=== PATIENT | male | born 1945 | race Caucasian/White ===

== ENCOUNTER 2018-05-04 11:09 | Inpatient (IN) | payer OTHER, BC ==
[2018-05-04 11:52] LABS: WHITE BLOOD COUNT 2.8 10^3/ul (4.8-10.8)
[2018-05-04 11:52] LABS: ABNORMAL IP MESSAGE 1; HEMATOCRIT 37.6 % (42.0-52.0); MEAN CORPUSCULAR HEMOGLOBIN 30.9 pg (29.0-33.0); MEAN CORPUSCULAR HGB CONC 31.9 g/dl (32.0-37.0); MEAN CORPUSCULAR VOLUME 96.9 fl (82.0-101.0); PLATELET COUNT 78 10^3/UL (140-415); POSITIVE DIFF @See below; RED BLOOD COUNT 3.88 10^6/ul (4.70-6.10); RED CELL DISTRIBUTION WIDTH 14.3 % (11.5-14.5)
[2018-05-04 11:54] LABS: ADD MAN DIFF? YES
[2018-05-04] MEDS: SOD CHLORIDE 0.9% 1,000 ML IV ×2 (11:54→14:00)
[2018-05-04 12:13] LABS: INR 1.09; PARTIAL THROMBOPLASTIN TIME 30.9 Sec (23.0-35.0); PROTIME 14.3 Sec (11.9-14.9); PT RATIO 1.1
[2018-05-04 12:31] LABS: ANION GAP 8 (5-13); BLOOD UREA NITROGEN 31 mg/dl (7-20); CALCIUM 8.8 mg/dl (8.4-10.2); CARBON DIOXIDE 26 mmol/L (21-31); CHLORIDE 110 mmol/L (97-110); CREATININE 0.87 mg/dl (0.61-1.24); GLUCOSE 93 mg/dl (70-220); POTASSIUM 4.1 mmol/L (3.5-5.1); SODIUM 144 mmol/L (135-144)
[2018-05-04 12:35] LABS: VALPROATE 54 ug/ml (50-100)
[2018-05-04 12:42] LABS: TROPONIN-I < 0.012 ng/ml (0.000-0.120)
[2018-05-04 12:51] LABS: BAND NEUTROPHILS % (M) 1 % (0-4); BASOPHILS % (M) 1 % (0-2); EOSINOPHILS % (M) 5 % (0-7); LYMPHOCYTES #M 0.7 10^3/ul (0.8-2.9); LYMPHOCYTES % (M) 25 % (15-51); MONOCYTE #M 0.1 10^3/ul (0.3-0.9); MONOCYTES % (M) 6 % (0-11); OVALOCYTES 1+ (0-0); PLATELET ESTIMATE DECREASED; SEG NEUT #M 1.7 10^3/ul (1.6-7.5); SEGMENTED NEUTROPHILS (M) % 62 % (39-77); SMUDGE%M 31 % (0-0)
[2018-05-04] MEDS ORDERED: ACETAMINOPHEN 325 MG TAB PO ×2 (13:00→14:00)
[2018-05-04] MEDS ORDERED: ONDANSETRON 4 MG INJ IV ×2 (13:00→14:00)
[2018-05-04] MEDS ORDERED: NACL 0.9% 3 ML SYG IV (14:00)
[2018-05-04 14:22] LABS: HEMOGLOBIN A1C 5.3 % (0-5.9)
[2018-05-04 14:37] LABS: FREE T4 (FREE THYROXINE) 0.84 ng/dl (0.78-2.44)
[2018-05-04 15:05] LABS: DIGOXIN < 0.4 ng/ml (1.0-2.0)
[2018-05-04 15:55] LABS: ALANINE AMINOTRANSFERASE 35 IU/L (13-69); ALBUMIN 2.8 g/dl (3.3-4.9); ALBUMIN/GLOBULIN RATIO 0.87; ALKALINE PHOSPHATASE 42 IU/L (42-121); ANION GAP 7 (5-13); ASPARTATE AMINO TRANSFERASE 36 IU/L (15-46); BILIRUBIN,INDIRECT 0.5 mg/dl (0-1.1); BILIRUBIN,TOTAL 0.5 mg/dl (0.2-1.3); BLOOD UREA NITROGEN 29 mg/dl (7-20); CALCIUM 8.7 mg/dl (8.4-10.2); CARBON DIOXIDE 27 mmol/L (21-31); CHLORIDE 108 mmol/L (97-110); CREATINE KINASE 105 IU/L (23-200); CREATININE 0.85 mg/dl (0.61-1.24); GLUCOSE 83 mg/dl (70-220); MAGNESIUM 1.9 mg/dl (1.7-2.5); POTASSIUM 4.2 mmol/L (3.5-5.1); SODIUM 142 mmol/L (135-144)
[2018-05-04 16:02] LABS: C-REACTIVE PROTEIN < 0.5 mg/dl (0.0-0.9)
[2018-05-04 16:05] LABS: B-TYPE NATRIURETIC PEPTIDE 1130 PG/ML (0-125)
[2018-05-04 16:07] LABS: TROPONIN-I < 0.012 ng/ml (0.000-0.120)
[2018-05-04 16:41] LABS: ERYTHROCYTE SEDIMENTATION RATE 6 mm/Hr (0-20)
[2018-05-04 19:45] LABS: TROPONIN-I < 0.012 ng/ml (0.000-0.120)
[2018-05-04] MEDS: DIVALPROEX (EC) 500 MG TAB PO (21:49)
[2018-05-05 01:11] LABS: TROPONIN-I < 0.012 ng/ml (0.000-0.120)
[2018-05-05 05:49] LABS: ADD MAN DIFF? NO
[2018-05-05 05:59] LABS: ABNORMAL IP MESSAGE 1; BASOPHILS % 0.4 % (0.0-2.0); EOSINOPHILS # 0.1 10^3/ul (0.0-0.5); EOSINOPHILS % 3.8 % (0.0-7.0); HEMATOCRIT 35.4 % (42.0-52.0); HEMOGLOBIN 11.7 g/dl (14.0-18.0); LYMPHOCYTES % 37.9 % (15.0-51.0); MEAN CORPUSCULAR HEMOGLOBIN 31.5 pg (29.0-33.0); MEAN CORPUSCULAR HGB CONC 33.1 g/dl (32.0-37.0); MEAN CORPUSCULAR VOLUME 95.4 fl (82.0-101.0); MEAN PLATELET VOLUME 11.6 fl (7.4-10.4); MONOCYTE # 0.3 10^3/ul (0.3-0.9); MONOCYTES % 10.6 % (0.0-11.0); NEUTROPHIL # 1.2 10^3/ul (1.6-7.5); NEUTROPHILS % 46.9 % (39.0-77.0); PLATELET COUNT 78 10^3/UL (140-415); POSITIVE DIFF @See below; RED BLOOD COUNT 3.71 10^6/ul (4.70-6.10); RED CELL DISTRIBUTION WIDTH 13.9 % (11.5-14.5)
[2018-05-05 05:59] LABS: WHITE BLOOD COUNT 2.6 10^3/ul (4.8-10.8)
[2018-05-05] MEDS: LEVOTHYROXINE 25 MCG TAB PO (06:12)
[2018-05-05 06:24] LABS: ALANINE AMINOTRANSFERASE 34 IU/L (13-69); ALBUMIN 2.4 g/dl (3.3-4.9); ALBUMIN/GLOBULIN RATIO 0.82; ALKALINE PHOSPHATASE 34 IU/L (42-121); ANION GAP 6 (5-13); ASPARTATE AMINO TRANSFERASE 34 IU/L (15-46); BILIRUBIN,INDIRECT 0.7 mg/dl (0-1.1); BILIRUBIN,TOTAL 0.7 mg/dl (0.2-1.3); BLOOD UREA NITROGEN 25 mg/dl (7-20); CALCIUM 8.4 mg/dl (8.4-10.2); CARBON DIOXIDE 25 mmol/L (21-31); CHLORIDE 108 mmol/L (97-110); CREATININE 0.78 mg/dl (0.61-1.24); GLUCOSE 89 mg/dl (70-220); POTASSIUM 4.4 mmol/L (3.5-5.1); SODIUM 139 mmol/L (135-144); TOTAL PROTEIN 5.3 g/dl (6.1-8.1)
[2018-05-05 06:24] LABS: TROPONIN-I < 0.012 ng/ml (0.000-0.120)
[2018-05-05 06:38] LABS: CHOL/HDL RATIO 3.8 RATIO; CHOLESTEROL 139 mg/dl (100-200); HDL CHOLESTEROL 36 mg/dl (31-75); LDL CHOLESTEROL,CALCULATED 84 mg/dl; MAGNESIUM 1.8 mg/dl (1.7-2.5); TRIGLYCERIDES 94 mg/dl (0-149)
[2018-05-05 06:51] LABS: TROPONIN-I < 0.012 ng/ml (0.000-0.120)
[2018-05-05] MEDS ORDERED: LISINOPRIL 5 MG TAB PO (09:00)
[2018-05-05] MEDS ORDERED: OLANZAPINE 5 MG TAB PO (09:00)
[2018-05-05] MEDS ORDERED: FUROSEMIDE 20 MG TAB PO (09:00)
[2018-05-05] MEDS: DONEPEZIL 10 MG TAB PO (09:25)
[2018-05-05] MEDS: DIVALPROEX (EC) 500 MG TAB PO ×3 (09:25→20:51)
[2018-05-05] MEDS: OLANZAPINE 2.5 MG TAB PO (09:25)
[2018-05-05] MEDS: SENNA/DOCUSATE NA (8.6MG/50MG) TAB PO (20:51)
[2018-05-05] MEDS: LORAZEPAM 2 MG INJ IV (20:52)
[2018-05-06 06:38] LABS: ADD MAN DIFF? NO
[2018-05-06 06:42] LABS: ABNORMAL IP MESSAGE 1; BASOPHILS % 0.3 % (0.0-2.0); EOSINOPHILS # 0.1 10^3/ul (0.0-0.5); HEMATOCRIT 35.9 % (42.0-52.0); HEMOGLOBIN 12.1 g/dl (14.0-18.0); LYMPHOCYTES # 1.1 10^3/ul (0.8-2.9); LYMPHOCYTES % 35.9 % (15.0-51.0); MEAN CORPUSCULAR HEMOGLOBIN 31.1 pg (29.0-33.0); MEAN CORPUSCULAR HGB CONC 33.7 g/dl (32.0-37.0); MEAN CORPUSCULAR VOLUME 92.3 fl (82.0-101.0); MEAN PLATELET VOLUME 12.1 fl (7.4-10.4); MONOCYTE # 0.3 10^3/ul (0.3-0.9); MONOCYTES % 9.3 % (0.0-11.0); NEUTROPHIL # 1.5 10^3/ul (1.6-7.5); NEUTROPHILS % 51.2 % (39.0-77.0); PLATELET COUNT 71 10^3/UL (140-415); POSITIVE DIFF @See below; RED BLOOD COUNT 3.89 10^6/ul (4.70-6.10); RED CELL DISTRIBUTION WIDTH 13.8 % (11.5-14.5)
[2018-05-06] MEDS: LEVOTHYROXINE 25 MCG TAB PO (07:00)
[2018-05-06 07:19] LABS: ALANINE AMINOTRANSFERASE 35 IU/L (13-69); ALBUMIN 2.4 g/dl (3.3-4.9); ALKALINE PHOSPHATASE 36 IU/L (42-121); ANION GAP 5 (5-13); ASPARTATE AMINO TRANSFERASE 37 IU/L (15-46); BILIRUBIN,INDIRECT 0.5 mg/dl (0-1.1); BILIRUBIN,TOTAL 0.5 mg/dl (0.2-1.3); BLOOD UREA NITROGEN 18 mg/dl (7-20); CALCIUM 8.1 mg/dl (8.4-10.2); CARBON DIOXIDE 25 mmol/L (21-31); CHLORIDE 107 mmol/L (97-110); CREATININE 0.92 mg/dl (0.61-1.24); GLUCOSE 93 mg/dl (70-220); MAGNESIUM 1.7 mg/dl (1.7-2.5); PHOSPHORUS 3.7 mg/dl (2.5-4.9); POTASSIUM 4.2 mmol/L (3.5-5.1); SODIUM 137 mmol/L (135-144); TOTAL PROTEIN 5.4 g/dl (6.1-8.1)
[2018-05-06] MEDS: DIVALPROEX (EC) 500 MG TAB PO ×3 (08:23→21:38)
[2018-05-06] MEDS: OLANZAPINE 2.5 MG TAB PO (08:23)
[2018-05-06] MEDS: ASPIRIN 81 MG TAB PO (08:23)
[2018-05-06] MEDS: DONEPEZIL 10 MG TAB PO (08:24)
[2018-05-06] MEDS ORDERED: MUPIROCIN 2% 15 GM CR TOP (15:00)
[2018-05-06] MEDS: MUPIROCIN 2% 22 GM OINT TOP ×2 (16:00→21:38)
[2018-05-06] MEDS: MEMANTINE 10 MG TAB PO (16:06)
[2018-05-06] MEDS: SENNA/DOCUSATE NA (8.6MG/50MG) TAB PO (21:38)
[2018-05-06] MEDS: BALSAM PERU/CASTOR OIL 60 GM TUBE TOP (21:38)
[2018-05-07] MEDS: LEVOTHYROXINE 25 MCG TAB PO (06:14)
[2018-05-07] MEDS: ASPIRIN 81 MG TAB PO (09:57)
[2018-05-07] MEDS: OLANZAPINE 2.5 MG TAB PO (09:57)
[2018-05-07] MEDS: DONEPEZIL 10 MG TAB PO (09:57)
[2018-05-07] MEDS: MEMANTINE 10 MG TAB PO (09:57)
[2018-05-07] MEDS: DIVALPROEX (EC) 500 MG TAB PO ×3 (09:57→20:07)
[2018-05-07] MEDS: BALSAM PERU/CASTOR OIL 60 GM TUBE TOP ×2 (09:58→20:12)
[2018-05-07] MEDS: MUPIROCIN 2% 22 GM OINT TOP ×2 (09:58→20:13)
[2018-05-07] MEDS: SENNA/DOCUSATE NA (8.6MG/50MG) TAB PO (20:07)
[2018-05-07] MEDS: LORAZEPAM 2 MG INJ IV (21:18)
[2018-05-08 06:17] LABS: ADD MAN DIFF? NO
[2018-05-08 06:29] LABS: ABNORMAL IP MESSAGE 1; BASOPHILS % 0.3 % (0.0-2.0); EOSINOPHILS # 0.1 10^3/ul (0.0-0.5); EOSINOPHILS % 2.6 % (0.0-7.0); HEMATOCRIT 41.2 % (42.0-52.0); HEMOGLOBIN 13.6 g/dl (14.0-18.0); LYMPHOCYTES # 1.1 10^3/ul (0.8-2.9); LYMPHOCYTES % 34.2 % (15.0-51.0); MEAN CORPUSCULAR VOLUME 93.8 fl (82.0-101.0); MEAN PLATELET VOLUME 11.4 fl (7.4-10.4); MONOCYTE # 0.3 10^3/ul (0.3-0.9); MONOCYTES % 9.1 % (0.0-11.0); NEUTROPHIL # 1.6 10^3/ul (1.6-7.5); NEUTROPHILS % 53.5 % (39.0-77.0); PLATELET COUNT 79 10^3/UL (140-415); POSITIVE DIFF @See below; RED BLOOD COUNT 4.39 10^6/ul (4.70-6.10); RED CELL DISTRIBUTION WIDTH 13.6 % (11.5-14.5)
[2018-05-08 06:29] LABS: WHITE BLOOD COUNT 3.1 10^3/ul (4.8-10.8)
[2018-05-08 06:46] LABS: ANION GAP 9 (5-13); BLOOD UREA NITROGEN 19 mg/dl (7-20); CALCIUM 8.4 mg/dl (8.4-10.2); CARBON DIOXIDE 25 mmol/L (21-31); CHLORIDE 106 mmol/L (97-110); CREATININE 0.85 mg/dl (0.61-1.24); GLUCOSE 90 mg/dl (70-220); MAGNESIUM 1.9 mg/dl (1.7-2.5); PHOSPHORUS 3.6 mg/dl (2.5-4.9); POTASSIUM 4.1 mmol/L (3.5-5.1); SODIUM 140 mmol/L (135-144)
[2018-05-08 06:48] LABS: INR 1.11; PROTIME 14.5 Sec (11.9-14.9); PT RATIO 1.1
[2018-05-08 06:49] LABS: PARTIAL THROMBOPLASTIN TIME 29.7 Sec (23.0-35.0)
[2018-05-08] MEDS: LEVOTHYROXINE 25 MCG TAB PO (07:06)
[2018-05-08] MEDS: MUPIROCIN 2% 22 GM OINT TOP (09:04)
[2018-05-08] MEDS: DONEPEZIL 10 MG TAB PO (09:04)
[2018-05-08] MEDS: OLANZAPINE 2.5 MG TAB PO (09:04)
[2018-05-08] MEDS: MEMANTINE 10 MG TAB PO (09:04)
[2018-05-08] MEDS: DIVALPROEX (EC) 500 MG TAB PO ×2 (09:04→12:48)
[2018-05-08] MEDS: BALSAM PERU/CASTOR OIL 60 GM TUBE TOP (09:04)
== END 2018-05-08 17:50 | DRG 309 ==
LOC: TEL 05-08 07:55 → E/R 11:09 → TEL 12:48
DX: I48.91 Unspecified atrial fibrillation (principal); D61.818 Other pancytopenia; I10 Essential (primary) hypertension; E03.9 Hypothyroidism, unspecified; I73.9 Peripheral vascular disease, unspecified; R60.0 Localized edema; F25.9 Schizoaffective disorder, unspecified; F01.50 Vascular dementia, unspecified severity, without behavioral disturbance, psychotic disturbance, mood disturbance, and anxiety; I95.9 Hypotension, unspecified; L98.499 Non-pressure chronic ulcer of skin of other sites with unspecified severity
CPT/HCPCS: 36415; 70450; 71045; 80048; 80053; 80061; 80162; 80164; 82550; 82553; 82962; 83036; 83735; 83880; 84100; 84439; 84443; 84484; 85025; 85610; 85651; 85730; 86140; 87081; 93005; 93306; 93922; 93970; 97116; 97161; 97530; 99217; 99285-25; G0378